=== PATIENT | male | born 1960 | race Caucasian/White ===

== ENCOUNTER 2025-05-07 10:29 | Emergency (ER) | payer MEDICAID ==
[~2025-05-07] VITALS: Ht 167.6 cm; Wt 65.8 kg
== END 2025-05-07 11:12 | disposition home or self-care (01) ==
LOC: ED 10:29
DX: S43.402A Unspecified sprain of left shoulder joint, initial encounter (principal); X58.XXXA Exposure to other specified factors, initial encounter; Y93.E9 Activity, other interior property and clothing maintenance; Y92.89 Other specified places as the place of occurrence of the external cause; Y99.8 Other external cause status